=== PATIENT | male | born 1960 | race Asian ===

== ENCOUNTER 2019-08-14 08:41 | Day surgery (SDC) | payer OTHER | END 2019-08-14 10:34 | disposition home or self-care (01) | LOC: OR 08:41 | PROC: 3E0R33Z Introduction of Anti-inflammatory into Spinal Canal, Percutaneous Approach (ICD-10-PCS; principal; 2019-08-14) | PROC: B01BYZZ Fluoroscopy of Spinal Cord using Other Contrast (ICD-10-PCS; 2019-08-14) | DX: M51.16 Intervertebral disc disorders with radiculopathy, lumbar region (principal) | CPT/HCPCS: J1020 ==

== ENCOUNTER 2019-09-11 08:33 | Day surgery (SDC) | payer OTHER | END 2019-09-11 09:15 | disposition home or self-care (01) | LOC: OR 08:33 | PROC: 3E0R33Z Introduction of Anti-inflammatory into Spinal Canal, Percutaneous Approach (ICD-10-PCS; principal; 2019-09-11) | PROC: B01BYZZ Fluoroscopy of Spinal Cord using Other Contrast (ICD-10-PCS; 2019-09-11) | DX: M51.16 Intervertebral disc disorders with radiculopathy, lumbar region (principal) | CPT/HCPCS: J1020 ==

== ENCOUNTER → 2019-10-30 | Day surgery (SDC) | payer OTHER | LOC: OR 03:30 | PROC: 3E0R33Z Introduction of Anti-inflammatory into Spinal Canal, Percutaneous Approach (ICD-10-PCS; principal; 2019-10-30) | DX: M51.17 Intervertebral disc disorders with radiculopathy, lumbosacral region (principal) | CPT/HCPCS: J1100; Q9966 ==